=== PATIENT | male | born 1990 | race Caucasian/White ===

== ENCOUNTER 2017-01-03 11:49 | Emergency (ER) | payer OTHER ==
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
[2017-01-03] MEDS ORDERED: ONDANSETRON DISINTEGRATING 4 MG TAB PO ONE (12:00)
[2017-01-03] MEDS ORDERED: IBUPROFEN 200 MG TAB PO ONE (12:00)
[2017-01-03 12:14] VITALS: RESP 16
[2017-01-03 13:11] VITALS: BP 117/81; PULSE 80; TEMP 97.9; O2SAT 98
== END 2017-01-03 13:10 | disposition home or self-care (01) ==
LOC: CED 11:49
DX: S06.0X0A Concussion without loss of consciousness, initial encounter (principal); W20.8XXA Other cause of strike by thrown, projected or falling object, initial encounter; Y92.69 Other specified industrial and construction area as the place of occurrence of the external cause; Y99.0 Civilian activity done for income or pay; Y93.89 Activity, other specified
CPT/HCPCS: 70450-PO

== ENCOUNTER 2017-05-29 11:15 | Emergency (ER) | payer OTHER ==
[2017-05-29 11:21] VITALS: O2SAT 99
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
[2017-05-29] MEDS ORDERED: IOPAMIDOL (ISOVUE-300) 100 ML BTL ONE (11:55)
[2017-05-29 12:55] VITALS: BP 116/72; PULSE 79; RESP 18; TEMP 98.4
== END 2017-05-29 13:00 | disposition home or self-care (01) ==
DX: S39.91XA Unspecified injury of abdomen, initial encounter (principal); F17.200 Nicotine dependence, unspecified, uncomplicated; V49.49XA Driver injured in collision with other motor vehicles in traffic accident, initial encounter; Y92.410 Unspecified street and highway as the place of occurrence of the external cause; Y99.8 Other external cause status
CPT/HCPCS: 82947-QW; Q9967